=== PATIENT | female | born 1940 | race African-American/Black ===

== ENCOUNTER 2020-05-23 14:05 | Emergency (ER) | payer OTHER, MEDICAID ==
[~2020-05-23] VITALS: Ht 167.6 cm; Wt 73.0 kg
[2020-05-23 15:35] LABS: BASOPHILS % 0.8 % (0.0-2.0); EOSINOPHILS % 0.6 % (0.0-5.0); HEMATOCRIT. 44.2 % (36.0-48.0); HEMOGLOBIN. 14.4 g/dL (12.0-16.0); LYMPHOCYTES % 25.3 % (20.0-50.0); MEAN CORPUSCULAR HEMOGLOBIN 27.7 pg (28.0-32.0); MEAN CORPUSCULAR VOLUME 84.7 fL (81.0-99.0); MEAN PLATELET VOLUME 9.6 fl (7.4-10.4); MONOCYTES % 8.6 % (2.0-8.0); NEUTROPHILS % 64.7 % (40.0-76.0); PLATELET 175 x1000/uL (130-400); RED BLOOD CELL COUNT 5.22 mill/uL (4.2-5.4); RED CELL DISTRIBUTION WIDTH 14.1 % (11.6-14.6)
[2020-05-23 15:38] LABS: CHLORIDE 106 mEq/L (98-107)
[2020-05-23 15:39] LABS: ETHANOL BLOOD < 10 mg/dL
[2020-05-23 15:42] LABS: CLARITY URINE CLEAR (CLEAR); COLOR URINE YELLOW (YELLOW); KETONES URINE NEGATIVE (NEGATIVE); LEUKOCYTE ESTERASE URINE NEGATIVE (NEGATIVE); NITRITE URINE NEGATIVE (NEGATIVE); OCCULT BLOOD URINE NEGATIVE (NEGATIVE); PROTEIN URINE NEGATIVE (NEGATIVE); SPECIFIC GRAVITY URINE 1.009 (1.005-1.030); UROBILINOGEN URINE 0.2 E.U./dL (0.2-1.0)
[2020-05-23 15:44] LABS: CREATINE KINASE 620 IU/L (26-192)
[2020-05-23 15:49] LABS: *AMPHETAMINES SCREEN URINE NEGATIVE (NEGATIVE)
[2020-05-23 15:50] LABS: *BARBITURATES SCREEN URINE NEGATIVE (NEGATIVE); *BENZODIAZEPINES SCREEN URINE NEGATIVE (NEGATIVE); *COCAINE SCREEN URINE NEGATIVE (NEGATIVE); CANNABINOID URINE SCREEN NEGATIVE (NEGATIVE); METHADONE URINE SCREEN NEGATIVE (NEGATIVE); OPIATES URINE SCREEN NEGATIVE (NEGATIVE); PHENCYCLIDINE URINE SCREEN NEGATIVE (NEGATIVE)
[2020-05-23] MEDS ORDERED: LORAZEPAM 1MG TABLET PO ONE (16:00)
[2020-05-23] MEDS ORDERED: LACTULOSE 20G/30ML UDC PO ONE (16:00)
[2020-05-23 18:51] VITALS: BP 158/73
== END 2020-05-23 19:35 | disposition short-term general hospital (02) ==
LOC: ER 14:05
DX: K72.90 Hepatic failure, unspecified without coma (principal); R41.82 Altered mental status, unspecified; E11.9 Type 2 diabetes mellitus without complications; I49.9 Cardiac arrhythmia, unspecified
CPT/HCPCS: 36415; 71045; 80053; 80305; 80307; 80320; 80329; 81003; 82140; 82550; 84484; 85025; 93005; 99285; G0480